=== PATIENT | female | born 1970 | race Two or more races ===

== ENCOUNTER 2020-07-04 13:14 | Emergency (ER) | payer SELFPAY ==
[~2020-07-04] VITALS: Ht 152.4 cm; Wt 56.9 kg
[2020-07-04] MEDS ORDERED: NEOSPORIN OINT. PKT 1 PACKET ONE (14:09)
[2020-07-04 15:04] VITALS: BP 124/74
== END 2020-07-04 15:06 | disposition home or self-care (01) ==
LOC: ED 14:43
DX: L02.415 Cutaneous abscess of right lower limb (principal)
CPT/HCPCS: 99281